=== PATIENT | female | born 1975 | race Caucasian/White ===

== ENCOUNTER → 2020-07-31 12:42 | Outpatient (BNVA) | payer OTHER, BC, SELFPAY | PROVIDERS: Family Provider Nurse Practitioner; PCP Nurse Practitioner; Visit Provider Nurse Practitioner Family | DX: Z20.828 Contact with and (suspected) exposure to other viral communicable diseases (principal) | CPT/HCPCS: 87635 ==

== ENCOUNTER 2020-08-06 12:59 | Inpatient (IN) | payer OTHER, SELFPAY ==
[2020-08-06] VITALS (11 sets, daily range): BP systolic 112–162; BP diastolic 67–104; PULSE 72–94; RESP 17–26; TEMP 36.2–37.3; O2SAT 80–95; BMI 62.1
--- NOTE | 2020-08-06 13:36 | XR_ITS ---
WS: [id number] Exam: XR chest 1V portable [id number] Date/Time of Exam: 08/06/2020 1:36 PM Reason For Exam: SOB, HYPOXIA, COVID+ There are patchy groundglass infiltrates throughout both lungs consistent with pneumonia. Normal card iomediastinal structures and regional bony elements. No pleural effusions. The lungs are fully expand ed. XR/XR chest 1V portable [id number] IMPRESSION: 1. Patchy groundglass infiltrates noted throughout both lungs consistent with p neumonia. The pattern is nonspecific but these findings can be seen with Covid 19 pneumonia.
--- NOTE | 2020-08-06 13:37 | ECG_ITS ---
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 Measurements Intervals [place] Rate: 82 P: 33 AL: 158 QRS: 7 QRSD: 98 T: 21 QT: 351 QTc: 411 Interpretive Statements SINUS RHYTHM WITH SINUS ARRHYTHMIA No previous ECG available for comparison Electronically Signed On 08-07-2020 11:07:23 SEPTIC TANK INSTALLER by Noemi Segundo M.D. [id number]
[2020-08-06 13:52] LABS: ABG PCO2 42.9 mmHg (35-45); ABG PH Result 7.42 (7.35-7.45); Arterial Blood Gas Hematocrit 37.8 % (37-47); Base Excess ABG 2.5 mmol/L (-2.0-2.0); Blood Gas Allen Test Pos; Blood Gas Operator Identificat MONRO; Blood Gas Sample Site Brachial, right; Blood Gas Sample Type Arterial; HCO3 ABG 27.5 mmol/L (22-26); Oxygen Device NC; PO2 ABG 66.2 mmHg (80.0-100.0)
[2020-08-06 13:54] LABS: Basophils % 0.2 %; Eosinophils % 0.7 %; Hematocrit 38.9 % (37.0-47.0); Hemoglobin 12.1 g/dL (11.5-15.3); Lymphocytes # 1.1 10^3/uL (0.8-4.8); Lymphocytes % 24.5 %; Mean Corpuscular HGB Conc 31.1 g/dL (30.0-36.0); Mean Corpuscular Hemoglobin 27.9 pg (28.0-34.0); Mean Corpuscular Volume 89.6 fL (81-99); Mean Platelet Volume 9.7 fL (7.4-10.4); Monocytes # 0.2 10^3/uL (0.2-0.9); Monocytes % 3.5 %; Neutrophils # 3.02 10^3/uL (1.8-7.7); Neutrophils % 70.4 %; Nucleated Red Blood Cells % 0 %; Platelet Count 156 10^3/cmm (130-400); Red Blood Count 4.34 10^6/uL (4.1-5.3); Red Cell Distribution Width 13.7 % (12.1-15.1); White Blood Count 4.3 10^3/uL (4.0-10.0)
[2020-08-06 14:08] LABS: Lactic Sepsis W/Reflex 1.4 mmol/L (0.5-2.2)
[2020-08-06 14:10] LABS: Troponin(5th) Baseline 7 ng/L (0-10)
[2020-08-06 14:17] LABS: NT Pro B Type Natriuretic Pept 53 pg/mL (0-125)
--- NOTE | 2020-08-06 14:18 | PC.PHAR ---
PT STATES SHE HAD A RX FOR INSULIN BUT IT WASNT COVERED BY HER INSURANCE-[facility] STATES THEY HAD A RX FOR LANTUS SOLOSTAR IT WASNT COVERED ON PTS INSURANCE-INSURANCE WANTS LEVAISHAIR OR KIT THEY SENT A REQUEST TO THE DR BUT HAVENT GOTTEN ANYTHING BACK
[2020-08-06 14:28] LABS: Alanine Aminotransferase 36 U/L (0-33); Albumin Level 3.8 g/dL (3.5-5.2); Alkaline Phosphatase 150 IU/L (35-105); Anion Gap 15.9 (5-19); Aspartate Amino Transferase 46 U/L (0-32); Blood Urea Nitrogen 9 mg/dL (6-20); C Reactive Protein 131.3 mg/L (0.0-4.9); Calcium 8.6 mg/dL (8.5-10.5); Carbon Dioxide 27 mmol/L (22-29); Chloride 97 mmol/L (98-107); Ferritin 297 ng/mL (15-150); Globulin 3.2 g/dL (1.3-4.6); Glomerular Filtration Rate 173.4 mL/min (90-130); Glucose 284 mg/dL (65-115); Osmolality Calculated 291 mOsm/kg (285-295); Potassium 3.9 mmol/L (3.5-5.1); Sodium 136 mmol/L (136-145); Total Bilirubin 0.8 mg/dL (0.15-1.2)
[2020-08-06] MEDS: cefTRIAXone 1,000 MG in sodium chloride 0.9% (plus) 50 ML 100 MG IV (14:57)
[2020-08-06] MEDS: dexamethasone 4 mg/mL INJ 6 MG IVP (14:57)
[2020-08-06 15:08] LABS: INR 0.93 (0.8-1.2)
[2020-08-06] MEDS: remdesivir 200 MG in sodium chloride 0.9% (100 ml) 100 ML 100 MG IV (15:12)
--- NOTE | 2020-08-06 15:37 | ECG_ITS ---
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 Measurements Intervals [place] Rate: 90 P: 24 NE: 158 QRS: 3 QRSD: 93 T: 14 QT: 348 QTc: 427 Interpretive Statements SINUS RHYTHM Compared to ECG 08/06/2020 13:31:34 Sinus arrhythmia no longer present Electronically Signed On 08-07-2020 11:29:16 PREMIUM CARD CANCELLATION CLERK by Noemi Segundo M.D. [id number]
--- NOTE | 2020-08-06 18:10 | P.HP_ITS ---
Providers/Chief Complaint Admitting Physician: Keny Crook Primary Care Provider: SANDRA SHRESTHA MD Chief Complaint: COVID +, INCREASED SOB History of Present Illness 45-year-old female with a past medical history significant for morbid obesity, diabetes mellitus, asthma and diagnosis of cellulitis of right lower extremity yesterday for which she was started on Augmentin was presented to the hospital with respiratory distress. This is associated with mild non-productive cough, subjective fever, chills and body aches. She stated this note the improve in progressively worsened in the past 2 days primarily. Upon arrival to emergency room her laboratory workup showed a WBC of 4.3, hemoglobin of 12.1, hematocrit of 38.9 and platelet count of 156. Sodium 136, potassium 3.9, chloride 97, bicarb 27, BUN 9 and creatinine of 0.4. Ferritin of 297, AST of 46, ALT of 36 an alkaline phosphatase of 150. Procalcitonin was 0.10. Rapid covered antigen was detected. Imaging studies included a chest x-ray which showed patchy ground-glass interstitial infiltrates bilaterally. Patient was noted to be hypoxic requiring up to 4 L of O2 via nasal cannula. She was started on Dec adron, Remdesivir, Ceftriaxone and admitted to the hospital. Patient was comfortable sitting up in bed during my eval. Review of Systems General: Reports: 10 or more systems reviewed and unremarkable except in HPI and below Medications/Allergies Home Medications Medication Instructions Recorded Confirmed Last Taken Type albuterol sulfate 90 mcg/actuation 2 puff INHALATION Q6H PRN 07/30/19 08/06/20 Unknown History aerosol inhaler cetirizine 10 mg capsule 10 mg PO DAILY@07/30/19 08/06/20 08/06/20 History omeprazole 20 mg capsule,delayed 20 mg PO DAILY@07/30/19 08/06/20 08/06/20 07:00 History release glipizide 10 mg tablet 10 mg PO BID@04/28/20 08/06/20 08/06/20 07:00 History Crestor 5 mg PO DAILY@08/06/20 08/06/20 08/05/20 History amoxicillin-pot clavulanate 1 tab PO Q12H 08/06/20 08/06/20 08/06/20 07:00 History ibuprofen 800 mg PO BID@07,08/06/20 08/06/20 08/06/20 07:00 History insulin glargine [Lantus Solostar See Rx Instructions .ROUTE .COMPLEX 08/06/20 08/06/20 Unknown History U-100 Insulin] lisinopril 20 mg PO DAILY@07 08/06/20 08/06/20 08/06/20 07:00 History lorazepam 0.5 - 1 mg PO BID PRN 08/06/20 08/06/20 Unknown History propranolol 80 mg PO DAILY@08/06/20 08/06/20 08/05/20 History Allergies Allergy/AdvReac Type Severity Reaction Status Date / Time No Known Allergies Allergy Verified 08/06/20 14:10 PFSH Acute PFSH: Medical History Anxiety and depression Hypertension Mixed hyperlipidemia Surgical History S/P hysterectomy S/P tubal ligation Family History Father Cancer Mother Hypertension Social History Smoking and tobacco status: never smoked Alcohol intake: never History of recent travel: No Vitals/I&O/Wt Last Vital Signs Temp 99.1 F 08/06/20 17:30 Pulse 87 08/06/20 17:30 Resp 18 08/06/20 17:30 BP 132/84 08/06/20 17:30 Pulse Ox 92 08/06/20 17:30 Weight last 48 hrs Weight 164.2 kg Physical Exam Narrative: EXAM NARRATIVE: General: alert, awake oriented x3, NAD HEENT : EOMI Grossly unremarkable Chest: Non-labored respiration CVS : NSR Extremity. Bilateral LE edema R>L - mild erythema Neuro: Grossly unremarkable Psych: Cooperative Data : 08/06/20 13:40 08/06/20 13:40 Micro: Microbiology 08/06/20 15:00 Blood Culture - Preliminary Blood SPECIMEN COLLECTED 08/06/20 14:30 Blood Culture - Preliminary Blood SPECIMEN COLLECTED A&P Assessment and plan (1) Type 2 diabetes mellitus with hyperglycemia: Status: Acute Qualifiers: Diabetes mellitus correction insulin use: without intermission coordinator use Qualified Code(s): E11.65 - Type 2 diabetes mellitus with hyperglycemia (2) Pneumonia due to COVID-19 virus: Status: Acute (3) Acute respiratory failure with hypoxia: Status: Acute 1. Acute hypoxic respiratory failure due to COVID-19 pneumonia - Remdesivir 200mg IV x 1 today, -> 100 mg IV daily x 4 days - Decadron 6 mg PO daily x 10 days - Zosyn empirically - Supplemental o2 as needed - Wean as tolerated - COVID -19 labs in am - Droplet precautions - Duoneb tx q6hr 2. Transaminitis - Trend LFT - Likley due to 3. Diabetes mellitus - Sliding scale insulin - Diabetic diet 4. RLE cellulitis - Check venous doppler - R/O DVT - Zosyn as above - Pro-ronda in am 5. GI ppx - Continue PPI 6. DVT ppx - Lovenox 40 mg Sq daily Attestations Medical Necessity Statement*: Will require over 2 midnight stay in hospital for evaluation and treatment of hypoxic respiratory failure due to COVID-19 pneumonia and cellulitis of right lower extremity Time Spent in Patient Care: (>than 50% of time spent in counselling and/or direct pt care on unit) . Coding Level of Care Code Acute Wire Coating Operator Metal for Livier Fwbryanna Diagnoses Type 2 diabetes mellitus with hyperglycemia E11.65 Diabetes mellitus correction insulin use: without correction use Pneumonia due to COVID-19 virus U07.1; J12.89 Acute respiratory failure with hypoxia J96.01
[2020-08-06] MEDS: piperacillin-tazobactam 3.375 GM in sodium chloride 0.9% (plus) 50 ML IV (19:46)
[2020-08-06] MEDS: enoxaparin 40 mg/0.4 mL Syringe SUBCUT (19:46)
[2020-08-06 21:41] LABS: Glucose Point of Care 342 mg/dL (70-110)
[2020-08-07] VITALS (16 sets, daily range): BP systolic 119–147; BP diastolic 56–82; PULSE 65–87; RESP 17–20; TEMP 36.4–36.8; O2SAT 92–96
--- NOTE | 2020-08-07 01:12 | W.ED.COVID ---
HPI - COVID General: Chief Complaint: COVID symptoms Stated Complaint: COVID +, INCREASED SOB Time Seen by Provider: 08/06/20 13:20 Source: patient Mode of arrival: EMS Limitations: no limitations Triage information: Has fever, cough or shortness of breath. Exposure to COVID + person last 14 days History of Present Illness: HPI Narrative: This is a 45 year old female who has been having respiratory symptoms and was recently diagnosed with COVID-19. She has been having increasing shortness of breath and severe weakness. Her symptoms have been worsening and so she is here to be evaluated. On arrival to the ED she was severely hypoxic with oxygen saturation at 80% on room air. She does not use oxygen at home. MD complaint: known COVID positive Prior covid testing: yes, results known COVID 19 common symptoms: positive fever(s), chills, cough, fatigue and body aches; negative dyspnea, headache(s), loss of sense of smell and/or taste, throat pain, nausea, vomiting or diarrhea COVID 19 other sytmptoms: positive requiring oxygen and lethargy; negative chest pain, pleuritic pain, cyanosis, confusion or new neurological complaints Onset (ago): day(s) (7) Severity: severe Pertinent comorbid conditions: diabetes, hypertension and obesity COVID Results: SARS-CoV-2 RNA (RT-PCR) Detected (NOT DETECTED) A 07/31/20 12:42 07/31/20 Review of Systems General: Reports: 10 or more systems reviewed and unremarkable except in HPI and below Const: Reports: fever(s), chills, body aches and fatigue Eyes: Denies: change in vision or blurry vision ENMT: Denies: throat pain Card: Denies: chest pain Resp: Denies: dyspnea GI: Denies: nausea, vomiting or diarrhea : Denies: flank pain, difficulty voiding, dysuria, urinary frequency, urinary urgency or urinary hesitancy Musc: Denies: neck pain, back pain or extremity swelling Skin/Breast: Denies: rash, pruritus or erythema Neuro: Denies: headache(s) or confusion Endo: Denies: polyuria, polydipsia or tired all the time [facility] ED PFSH: Medical History Anxiety and depression Hypertension Mixed hyperlipidemia Surgical History S/P hysterectomy S/P tubal ligation Family History Father Cancer Mother Hypertension Social History Smoking and tobacco status: never smoked Alcohol intake: never History of recent travel: No Physical Exam Const: COMMON NORMALS: no acute distress, average body habitus, patient oriented x3, no limitations, healthy appearing, alert and well nourished HENMT: COMMON NORMALS: normocephalic, atraumatic and moist oral mucous membranes HEAD & SCALP: normocephalic and atraumatic Neck/C-Spine: COMMON NORMALS: no meningeal signs and no JVD Resp: COMMON NORMALS: normal respiratory effort, No retractions, No use of accessory muscles and percussion normal AUSCULTATION: diminished lung sounds PERCUSSION: percussion normal Cardio: COMMON NORMALS: no JVD, regular rate, regular rhythm, S1 normal heart sound present, S2 normal heart sound present, No gallops present (Cardio), No clicks present (Cardio), No murmurs present (Cardio), No rub (Cardio) and Peripheral pulses 2+ throughout RATE: regular rate RHYTHM: regular rhythm HEART SOUNDS: S1 normal heart sound present and S2 normal heart sound present PERIPHERAL PULSES: Peripheral pulses 2+ throughout GI: COMMON NORMALS: Normal to inspection, nondistended, normoactive bowel sounds present, Soft to palpation, non-tender, No hepatosplenomegaly present, no masses and no bruits PALPATION: Yes Soft to palpation and Yes No hepatosplenomegaly present Extremity: COMMON NORMALS: normal to inspection, full ROM, capillary refill normal, no calf tenderness and no pedal edema Neuro: COMMON NORMALS: patient oriented x3 SENSORIUM/ORIENTATION: Yes alert MENINGEAL SIGNS: Yes no meningeal signs Skin: COMMON NORMALS: no rashes or lesions noted, no wounds, turgor normal, no jaundice, no petechiae and no mottling GENERAL SKIN EXAM: no rashes or lesions noted and turgor normal Course Reevaluation(s): Reevaluation #1: Discussed her lab and imaging findings with her and advised that she will benefit from hospital admission. She voiced understanding and is in agreement with the plan. Time: 15:30 Consultations: Consultation #1: Discussed the patient with Dr. Crook, hospitalist and he kindly accepted the patient to his service. Time: 15:24 Vital Signs: Vital signs: Vital Signs Temperature 98.4 F 08/08/20 11:41 Pulse Rate 77 08/08/20 14:00 Respiratory Rate 18 08/08/20 11:42 Blood Pressure 131/77 08/08/20 11:41 Pulse Oximetry 93 08/08/20 11:42 MDM - COVID MDM Narrative: Medical decision making narrative: This 45 year old diabetic, obese female was recently diagnosed with COVID-19 and has been having worsening SOB. She was significantly hypoxic on arrival to the ED. CXR consistent with COVID pneumonia. She is a high risk patient and is therefore admitted to the hospital for further evaluation and management. She was given a dose of dexamethasone, remdesivir, and an antibiotic in the ED. Medical Records: Attestation: I reviewed the patient's medical records. Lab Data: Attestation: I reviewed the patient's lab results. Labs: Lab Results 08/06/20 08/06/20 08/06/20 Range/Units 13:38 13:40 13:40 WBC 4.3 (4.0-10.0) 10^3/ uL RBC 4.34 (4.1-5.3) 10^6/u L Hgb 12.1 (11.5-15.3) g/dL Hct 38.9 (37.0-47.0) % MCV 89.6 (81-99) fL MCH 27.9 L (28.0-34.0) pg MCHC 31.1 (30.0-36.0) g/dL RDW 13.7 (12.1-15.1) % Plt Count 156 (130-400) 10^3/c mm MPV 9.7 (7.4-10.4) fL Neut % (Auto) 70.4 % Lymph % (Auto) 24.5 % [place] % (Auto) 3.5 % Eos % (Auto) 0.7 % Baso % (Auto) 0.2 % Neut # (Auto) 3.02 (1.8-7.7) 10^3/u L Lymph # (Auto) 1.1 (0.8-4.8) 10^3/u L [place] # (Auto) 0.2 (0.2-0.9) 10^3/u L Eos # (Auto) 0.0 (0.0-0.8) 10^3/u L Baso # (Auto) 0.0 (0.0-0.1) 10^3/u L Nucleated RBC % (a uto) 0 % Nucleated RBCs # 0.0 /100WBC PT 12.70 (12.1-14.9) SECO NDS INR 0.93 (0.8-1.2) D-Dimer 0.90 H (0-0.59) ug/mIFE U Specimen Type Arterial Sample Site Brachial, right ABG pH 7.42 (7.35-7.45) ABG pCO2 42.9 (35-45) mmHg ABG pO2 66.2 L (80.0-100.0) mmH g ABG HCO3 27.5 H (22-26) mmol/L ABG Base Excess 2.5 H (-2.0-2.0) mmol/ L Jonnathan Test Pos Hematocrit 37.8 (37-47) % O2 Delivery Device Nc O2 Liters/Min 4.0 % FiO2 36.0 % Underground Foreman ID [place] Sodium (136-145) mmol/L Potassium (3.5-5.1) mmol/L Chloride (98-107) mmol/L Carbon Dioxide (22-29) mmol/L Anion Gap (5-19) BUN (6-20) mg/dL Creatinine (0.5-0.9) mg/dL GFR Calculation (90-130) mL/min Glucose (65-115) mg/dL Calculated Osmolal ity (285-295) mOsm/k g Lactic Acid (0.5-2.2) mmol/L Calcium (8.5-10.5) mg/dL Ferritin (15-150) ng/mL Total Bilirubin (0.15-1.2) mg/dL AST (0-32) U/L ALT (0-33) U/L Alkaline Phosphata se (35-105) IU/L Troponin T Baselin e (0-10) ng/L Troponin T 120 [place] (0-10) ng/L Delta Troponin T (0-10) ABS# C-Reactive Protein (0.0-4.9) mg/L NT-Pro-B Natriuret Pep (0-125) pg/mL Total Protein (6.6-8.7) g/dL Albumin (3.5-5.2) g/dL Globulin (1.3-4.6) g/dL Procalcitonin (0-0.5) ng/mL 08/06/20 08/06/20 08/06/20 Range/Units 13:40 13:40 13:40 WBC (4.0-10.0) 10^3/ uL RBC (4.1-5.3) 10^6/u L Hgb (11.5-15.3) g/dL Hct (37.0-47.0) % MCV (81-99) fL MCH (28.0-34.0) pg MCHC (30.0-36.0) g/dL RDW (12.1-15.1) % Plt Count (130-400) 10^3/c mm MPV (7.4-10.4) fL Neut % (Auto) % Lymph % (Auto) % [place] % (Auto) % Eos % (Auto) % Baso % (Auto) % Neut # (Auto) (1.8-7.7) 10^3/u L Lymph # (Auto) (0.8-4.8) 10^3/u L [place] # (Auto) (0.2-0.9) 10^3/u L Eos # (Auto) (0.0-0.8) 10^3/u L Baso # (Auto) (0.0-0.1) 10^3/u L Nucleated RBC % (a uto) % Nucleated RBCs # /100WBC PT (12.1-14.9) SECO NDS INR (0.8-1.2) D-Dimer (0-0.59) ug/mIFE U Specimen Type Sample Site ABG pH (7.35-7.45) ABG pCO2 (35-45) mmHg ABG pO2 (80.0-100.0) mmH g ABG HCO3 (22-26) mmol/L ABG Base Excess (-2.0-2.0) mmol/ L Jonnathan Test Hematocrit (37-47) % O2 Delivery Device O2 Liters/Min % FiO2 % Underground Foreman ID Sodium 136 (136-145) mmol/L Potassium 3.9 (3.5-5.1) mmol/L Chloride 97 L (98-107) mmol/L Carbon Dioxide 27 (22-29) mmol/L Anion Gap 15.9 (5-19) BUN 9 (6-20) mg/dL Creatinine 0.4 L (0.5-0.9) mg/dL GFR Calculation 173.4 H (90-130) mL/min Glucose 284 H (65-115) mg/dL Calculated Osmolal ity 291 (285-295) mOsm/k g Lactic Acid 1.4 (0.5-2.2) mmol/L Calcium 8.6 (8.5-10.5) mg/dL Ferritin 297 H (15-150) ng/mL Total Bilirubin 0.8 (0.15-1.2) mg/dL AST 46 H (0-32) U/L ALT 36 H (0-33) U/L Alkaline Phosphata se 150 H (35-105) IU/L Troponin T Baselin e 7 (0-10) ng/L Troponin T 120 [place] (0-10) ng/L Delta Troponin T (0-10) ABS# C-Reactive Protein 131.3 H (0.0-4.9) mg/L NT-Pro-B Natriuret Pep 53 (0-125) pg/mL Total Protein 7.0 (6.6-8.7) g/dL Albumin 3.8 (3.5-5.2) g/dL Globulin 3.2 (1.3-4.6) g/dL Procalcitonin 0.10 (0-0.5) ng/mL 08/06/20 Range/Units 15:00 WBC (4.0-10.0) 10^3/ uL RBC (4.1-5.3) 10^6/u L Hgb (11.5-15.3) g/dL Hct (37.0-47.0) % MCV (81-99) fL MCH (28.0-34.0) pg MCHC (30.0-36.0) g/dL RDW (12.1-15.1) % Plt Count (130-400) 10^3/c mm MPV (7.4-10.4) fL Neut % (Auto) % Lymph % (Auto) % [place] % (Auto) % Eos % (Auto) % Baso % (Auto) % Neut # (Auto) (1.8-7.7) 10^3/u L Lymph # (Auto) (0.8-4.8) 10^3/u L [place] # (Auto) (0.2-0.9) 10^3/u L Eos # (Auto) (0.0-0.8) 10^3/u L Baso # (Auto) (0.0-0.1) 10^3/u L Nucleated RBC % (a uto) % Nucleated RBCs # /100WBC PT (12.1-14.9) SECO NDS INR (0.8-1.2) D-Dimer (0-0.59) ug/mIFE U Specimen Type Sample Site ABG pH (7.35-7.45) ABG pCO2 (35-45) mmHg ABG pO2 (80.0-100.0) mmH g ABG HCO3 (22-26) mmol/L ABG Base Excess (-2.0-2.0) mmol/ L Jonnathan Test Hematocrit (37-47) % O2 Delivery Device O2 Liters/Min % FiO2 % Underground Foreman ID Sodium (136-145) mmol/L Potassium (3.5-5.1) mmol/L Chloride (98-107) mmol/L Carbon Dioxide (22-29) mmol/L Anion Gap (5-19) BUN (6-20) mg/dL Creatinine (0.5-0.9) mg/dL GFR Calculation (90-130) mL/min Glucose (65-115) mg/dL Calculated Osmolal ity (285-295) mOsm/k g Lactic Acid (0.5-2.2) mmol/L Calcium (8.5-10.5) mg/dL Ferritin (15-150) ng/mL Total Bilirubin (0.15-1.2) mg/dL AST (0-32) U/L ALT (0-33) U/L Alkaline Phosphata se (35-105) IU/L Troponin T Baselin e (0-10) ng/L Troponin T 120 [place] 6.00 (0-10) ng/L Delta Troponin T -1.00 L (0-10) ABS# C-Reactive Protein (0.0-4.9) mg/L NT-Pro-B Natriuret Pep (0-125) pg/mL Total Protein (6.6-8.7) g/dL Albumin (3.5-5.2) g/dL Globulin (1.3-4.6) g/dL Procalcitonin (0-0.5) ng/mL Imaging Data: CXR: Attestation: I personally reviewed and interpreted this imaging study as follows: Radiologist's impression: [address] [address] XRay Report Signed Patient: Sarah Ferguson #: [id number] : 1975Acct#:[id number] Age/Sex: 45 / FADM Date: 08/06/20 Loc: ERRoom/Bed: Attending Dr: Ordering Provider/Ordering MD: Stanley Membreno MD, [facility] [place] Date of Service: 08/06/20 Procedure(s): XR chest 1V portable [id number] Accession Number(s): [id number] Report Number: [id number] WS: [id number] Exam: XR chest 1V portable [id number] Date/Time of Exam: 08/06/2020 1:36 PM Reason For Exam: SOB, HYPOXIA, COVID+ There are patchy groundglass infiltrates throughout both lungs consistent with pneumonia. Normal cardiomediastinal structures and regional bony elements. No pleural effusions. The lungs are fully expanded. XR/XR chest 1V portable [id number] IMPRESSION: 1. Patchy groundglass infiltrates noted throughout both lungs consistent with pneumonia. The pattern is nonspecific but these findings can be seen with Covid 19 pneumonia. Dictated By:Mohan Rodriguez DO Signed By:Peg Green Date/Time:08/06/20 1405 DD/ 1403 EKG Data: EKG 1: Attestation: I personally reviewed and interpreted this EKG as follows: EKG interpretation date: 08/06/20 EKG interpretation time: 13:31 Prior EKG tracings: not available for review Interpretation: sinus rhythm HR 82 bpm normal axis. No ST changes EKG 2: Attestation: I personally reviewed and interpreted this EKG as follows: EKG interpretation date: 08/06/20 EKG interpretation time: 16:43 Prior EKG tracings: available for review Interpretation: NSR HR 90 bpm normal axis No ST changes. No significant change from earlier. COVID Results: SARS-CoV-2 RNA (RT-PCR) Detected (NOT DETECTED) A 07/31/20 12:42 07/31/20 Discharge Plan Discharge Patient Disposition: Admitted As Inpatient Admit Provider: Keny Crook Clinical Impression: Acute respiratory failure with hypoxia, Type 2 diabetes mellitus with hyperglycemia, Pneumonia due to COVID-19 virus Condition: Stable Coding Level of Care Code ED Manager Respiratory Care for Livier Aguirre
[2020-08-07] MEDS: piperacillin-tazobactam 3.375 GM in sodium chloride 0.9% (plus) 50 ML IV ×3 (03:54→20:28)
[2020-08-07 06:02] LABS: Basophils % 0.2 %; Hematocrit 37.1 % (37.0-47.0); Hemoglobin 11.5 g/dL (11.5-15.3); Lymphocytes # 1.1 10^3/uL (0.8-4.8); Lymphocytes % 26.4 %; Mean Corpuscular Hemoglobin 27.8 pg (28.0-34.0); Mean Corpuscular Volume 89.6 fL (81-99); Mean Platelet Volume 10.3 fL (7.4-10.4); Monocytes # 0.2 10^3/uL (0.2-0.9); Monocytes % 3.9 %; Neutrophils # 2.83 10^3/uL (1.8-7.7); Neutrophils % 68.5 %; Nucleated Red Blood Cells % 0 %; Platelet Count 162 10^3/cmm (130-400); Red Blood Count 4.14 10^6/uL (4.1-5.3); Red Cell Distribution Width 13.6 % (12.1-15.1); White Blood Count 4.1 10^3/uL (4.0-10.0)
[2020-08-07 06:19] LABS: D Dimer 0.77 ug/mIFEU (0-0.59)
[2020-08-07] MEDS: dexamethasone 4 mg Tablet 6 MG PO (06:58)
[2020-08-07] MEDS: pantoprazole DR 40 mg Tablet PO (07:01)
[2020-08-07 07:08] LABS: Alanine Aminotransferase 30 U/L (0-33); Albumin Level 3.5 g/dL (3.5-5.2); Alkaline Phosphatase 131 IU/L (35-105); Anion Gap 19.1 (5-19); Aspartate Amino Transferase 35 U/L (0-32); Blood Urea Nitrogen 11 mg/dL (6-20); C Reactive Protein 152.5 mg/L (0.0-4.9); Calcium 8.6 mg/dL (8.5-10.5); Carbon Dioxide 23 mmol/L (22-29); Chloride 98 mmol/L (98-107); Ferritin 297 ng/mL (15-150); Globulin 3.6 g/dL (1.3-4.6); Glucose 322 mg/dL (65-115); Magnesium 1.5 mg/dL (1.7-2.3); Osmolality Calculated 294 mOsm/kg (285-295); Potassium 4.1 mmol/L (3.5-5.1); Sodium 136 mmol/L (136-145); Total Bilirubin 0.7 mg/dL (0.15-1.2); Total Protein 7.1 g/dL (6.6-8.7)
[2020-08-07 07:17] LABS: Glucose Point of Care 322 mg/dL (70-110)
[2020-08-07] MEDS: acetaminophen 325 mg Tablet 650 MG PO (08:29)
[2020-08-07] MEDS: albuterol 8 gm MDI 2 PUFF INHALATION ×4 (09:15→20:03)
[2020-08-07 11:23] LABS: Glucose Point of Care 443 mg/dL (70-110)
--- NOTE | 2020-08-07 13:33 | P.PN_ITS ---
Subjective Subjective: Interval history: Patient was stating she is feeling better however o2 requirements increased overnight. no fever or chills, no nausea or vomiting Medications: Reviewed: Yes Vitals/I&O/Wt Last Vital Signs Temp 98.0 F 08/07/20 11:59 Pulse 86 08/07/20 12:55 Resp 20 H 08/07/20 12:54 BP 135/56 08/07/20 11:59 Pulse Ox 93 08/07/20 12:54 08/06/20 08/07/20 08/07/20 22:59 06:59 14:59 Intake Total 150 / 150 530 / 680 530 / 530 Balance 150 / 150 530 / 680 530 / 530 Weight last 48 hrs Weight 164.2 kg Physical Exam Narrative: EXAM NARRATIVE: General: alert, awake oriented x3, NAD HEENT : EOMI Grossly unremarkable Chest: Non-labored respiration CVS : NSR Extremity. Bilateral LE edema R>L - mild erythema Neuro: Grossly unremarkable Psych: Cooperative Data : 08/07/20 05:25 08/07/20 05:25 Micro: Microbiology 08/06/20 15:00 Blood Culture - Preliminary Blood SPECIMEN COLLECTED 08/06/20 14:30 Blood Culture - Preliminary Blood SPECIMEN COLLECTED A&P Assessment and plan (1) Type 2 diabetes mellitus with hyperglycemia: Status: Acute Qualifiers: Diabetes mellitus assisted insulin use: without petroleum terminal plant operator use Qualified Code(s): E11.65 - Type 2 diabetes mellitus with hyperglycemia (2) Pneumonia due to COVID-19 virus: Status: Acute (3) Acute respiratory failure with hypoxia: Status: Acute 1. Acute hypoxic respiratory failure due to COVID-19 pneumonia - Remdesivir day 07/16 protocol - Decadron 6 mg PO daily x 10 days - Zosyn empirically for now - Supplemental o2 as needed - Wean as tolerated - COVID -19 labs in am - Droplet precautions - Duoneb tx q6hr - O2 requirement increased to 5L today - Continue respiratory treatments 2. Transaminitis - Trend LFT - Likely due to covid - CMP in am 3. Diabetes mellitus - Sliding scale insulin - Diabetic diet - Will add lantus 4. RLE cellulitis - Check venous doppler - pending - R/O DVT - Zosyn as above - Pro-ronda in am 5. GI ppx - Continue PPI 6. DVT ppx - Lovenox 40 mg Sq [facility] Necessity Statement*: Continue hospitalization for management of hypoxic respiratory failure due to COVID-19 pneumonia Time Spent in Patient Care: Greater than 35 minutes (>than 50% of time spent in counselling and/or direct pt care on unit) . Coding Level of Care Code Acute Screed Operator for g Fwd Diagnoses Type 2 diabetes mellitus with hyperglycemia E11.65 Diabetes mellitus petroleum terminal plant operator insulin use: without petroleum terminal plant operator use Pneumonia due to COVID-19 virus U07.1; J12.89 Acute respiratory failure with hypoxia J96.01
[2020-08-07 17:13] LABS: Glucose Point of Care 410 mg/dL (70-110)
--- NOTE | 2020-08-07 17:45 | USR_ITS ---
PROCEDURE INFORMATION: Exam: US Duplex Right Lower Extremity Veins, Limited Exam date and time: 08/07/2020 6:35 AM Age: 45 years old Clinical indication: Edema, localized; Lower extremity, right; Additional info: Edema /tenderness in setting of covid TECHNIQUE: Imaging protocol: Real-time Duplex ultrasound of the Right Lower Extremity with 2-D luong scale, color Doppler flow and spectral waveform analysis with image documentation. Limited exam was focused on the right lower extremity veins. COMPARISON: No relevant prior studies available. FINDINGS: Right deep veins: Unremarkable. The common femoral, femoral, proximal profunda femoral and popliteal veins are patent without thrombus. Normal Doppler waveforms. Normal compressibility and/or augmentation response. Right superficial veins: Unremarkable. Saphenofemoral junction is patent without thrombus. Soft tissues: Mild edema about the ankle. US/[place] [id number] IMPRESSION: No evidence of deep vein thrombosis.
[2020-08-07] MEDS: remdesivir 100 MG in sodium chloride 0.9% (100 ml) 100 ML IV (17:50)
[2020-08-07] MEDS: enoxaparin 40 mg/0.4 mL Syringe SUBCUT (20:22)
[2020-08-07 20:52] LABS: Glucose Point of Care 430 mg/dL (70-110)
[2020-08-08] VITALS (19 sets, daily range): BP systolic 110–136; BP diastolic 66–84; PULSE 63–94; RESP 18–22; TEMP 36.6–36.9; O2SAT 90–98
[2020-08-08] MEDS: albuterol 8 gm MDI 2 PUFF INHALATION ×6 (00:21→20:09)
[2020-08-08] MEDS: dexamethasone 4 mg Tablet 6 MG PO (05:04)
[2020-08-08] MEDS: piperacillin-tazobactam 3.375 GM in sodium chloride 0.9% (plus) 50 ML IV ×3 (05:06→22:15)
[2020-08-08] MEDS: pantoprazole DR 40 mg Tablet PO (06:26)
[2020-08-08 06:29] LABS: Basophils % 0.2 %; Hematocrit 37.1 % (37.0-47.0); Hemoglobin 11.6 g/dL (11.5-15.3); Lymphocytes # 1.2 10^3/uL (0.8-4.8); Lymphocytes % 24.8 %; Mean Corpuscular HGB Conc 31.3 g/dL (30.0-36.0); Mean Corpuscular Hemoglobin 28.1 pg (28.0-34.0); Mean Corpuscular Volume 89.8 fL (81-99); Monocytes # 0.3 10^3/uL (0.2-0.9); Monocytes % 5.3 %; Neutrophils # 3.27 10^3/uL (1.8-7.7); Neutrophils % 68.6 %; Nucleated Red Blood Cells % 0 %; Platelet Count 220 10^3/cmm (130-400); Red Blood Count 4.13 10^6/uL (4.1-5.3); Red Cell Distribution Width 13.6 % (12.1-15.1); White Blood Count 4.8 10^3/uL (4.0-10.0)
[2020-08-08 06:40] LABS: Glucose Point of Care 402 mg/dL (70-110)
--- NOTE | 2020-08-08 07:17 | PC.NURSE ---
patient's blood sugar is running above 400 consistently, checking with Dr Crook to see if we need to change the insulin sliding scale.
[2020-08-08 08:06] LABS: Alanine Aminotransferase 29 U/L (0-33); Albumin Level 3.7 g/dL (3.5-5.2); Alkaline Phosphatase 123 IU/L (35-105); Anion Gap 16.4 (5-19); Aspartate Amino Transferase 36 U/L (0-32); Blood Urea Nitrogen 16 mg/dL (6-20); Carbon Dioxide 28 mmol/L (22-29); Chloride 99 mmol/L (98-107); Globulin 3.8 g/dL (1.3-4.6); Glucose 335 mg/dL (65-115); Osmolality Calculated 302 mOsm/kg (285-295); Potassium 4.4 mmol/L (3.5-5.1); Sodium 139 mmol/L (136-145); Total Bilirubin 0.5 mg/dL (0.15-1.2); Total Protein 7.5 g/dL (6.6-8.7)
[2020-08-08 08:21] LABS: Slide Review Slide Review Perform
[2020-08-08] MEDS: acetaminophen 325 mg Tablet 650 MG PO (10:52)
[2020-08-08 11:07] LABS: Glucose Point of Care 457 mg/dL (70-110)
[2020-08-08] MEDS: insulin glargine 100 units/1 mL 10 UNIT SUBCUT (12:19)
--- NOTE | 2020-08-08 16:57 | P.PN_ITS ---
Subjective Subjective: Interval history: Overall unchanged No new complaints. Medications: Reviewed: Yes Vitals/I&O/Wt Last Vital Signs Temp 97.9 F 08/08/20 15:02 Pulse 65 08/08/20 15:29 Resp 18 08/08/20 15:29 BP 118/71 08/08/20 15:02 Pulse Ox 96 08/08/20 15:29 08/08/20 08/08/20 08/08/20 06:59 14:59 22:59 Intake Total 250 / 1170 320 / 320 50 / 370 Output Total 1200 / 3800 800 / 800 500 / 1300 Balance -950 / -2630 -480 / -480 -450 / -930 Physical Exam Narrative: EXAM NARRATIVE: General: alert, awake oriented x3, NAD HEENT : EOMI Grossly unremarkable Chest: Non-labored respiration CVS : NSR Extremity. Bilateral LE edema R>L - mild erythema Neuro: Grossly unremarkable Psych: Cooperative Data : 08/08/20 05:32 08/08/20 05:32 Micro: Microbiology 08/06/20 15:00 Blood Culture - Preliminary Blood NEGATIVE TO DATE 08/06/20 14:30 Blood Culture - Preliminary Blood NEGATIVE TO DATE A&P Assessment and plan (1) Type 2 diabetes mellitus with hyperglycemia: Status: Acute Qualifiers: Diabetes mellitus termite inspector insulin use: with termite inspector use Qualified Code(s): E11.65 - Type 2 diabetes mellitus with hyperglycemia; Z79.4 - half-way (current) use of insulin (2) Pneumonia due to COVID-19 virus: Status: Acute (3) Acute respiratory failure with hypoxia: Status: Acute 1. Acute hypoxic respiratory failure due to COVID-19 pneumonia - Remdesivir day 08/13 protocol - Decadron 6 mg PO daily x 10 days - Zosyn empirically for now - Supplemental o2 as needed - Wean as tolerated - COVID -19 labs in am - Droplet precautions - Duoneb tx q6hr - O2 requirement 4-5L - Continue respiratory treatments 2. Transaminitis - Trend LFT - Likely due to covid - CMP in am 3. Diabetes mellitus - Sliding scale insulin - Diabetic diet - Continue lantus 4. RLE cellulitis - Venous doppler - negative - Zosyn as above - Pro-ronda negative - Can consider deescalating abx 5. GI ppx - Continue PPI 6. DVT ppx - Lovenox 40 mg Sq daily Attestations Medical Necessity Statement*: Continue hospitalization for management of COVID-19 pneumonia Time Spent in Patient Care: Greater than 35 minutes (>than 50% of time spent in counselling and/or direct pt care on unit) . 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
[2020-08-08 16:58] LABS: Glucose Point of Care 421 mg/dL (70-110)
[2020-08-08] MEDS: remdesivir 100 MG in sodium chloride 0.9% (100 ml) 100 ML IV (17:40)
[2020-08-08] MEDS: enoxaparin 40 mg/0.4 mL Syringe SUBCUT (21:59)
[2020-08-09] VITALS (13 sets, daily range): BP systolic 123–150; BP diastolic 73–84; PULSE 56–88; RESP 16–20; TEMP 36.5–36.8; O2SAT 93–95
[2020-08-09] MEDS: albuterol 8 gm MDI 2 PUFF INHALATION ×3 (00:17→08:10)
[2020-08-09 03:55] LABS: Glucose Point of Care 402 mg/dL (70-110)
[2020-08-09] MEDS: pantoprazole DR 40 mg Tablet PO (06:27)
[2020-08-09] MEDS: dexamethasone 4 mg Tablet 6 MG PO (06:29)
[2020-08-09] MEDS: piperacillin-tazobactam 3.375 GM in sodium chloride 0.9% (plus) 50 ML IV ×3 (06:29→22:15)
[2020-08-09 06:56] LABS: Glucose Point of Care 307 mg/dL (70-110)
--- NOTE | 2020-08-09 07:00 | XR_ITS ---
WS: [id number] PORTABLE CHEST HISTORY: respiratory failure COMPARISON: 08/06/2020 Diffuse bilateral patchy opacifications have not significantly improved since the prior study. Slight ly greater opacification throughout the LEFT lung. No pleural effusion or pneumothorax. Cardiac size: Normal. Mediastinum/Aorta: Mild atherosclerosis aorta. No osseous abnormality seen. XR/XR chest 1V portable 23522 IMPRESSION: Continued unchanged mild patchy opacifications noted bilaterally, greatest on t he LEFT. Most consistent with pneumonia or pneumonitis.
[2020-08-09 08:38] LABS: D Dimer 0.61 ug/mIFEU (0-0.59)
[2020-08-09] MEDS: insulin glargine 100 units/1 mL 10 UNIT SUBCUT (09:31)
[2020-08-09 11:24] LABS: Glucose Point of Care 382 mg/dL (70-110)
[2020-08-09 12:10] LABS: Hematocrit 35.5 % (37.0-47.0); Hemoglobin 11.3 g/dL (11.5-15.3); Mean Corpuscular HGB Conc 31.8 g/dL (30.0-36.0); Mean Corpuscular Hemoglobin 28.4 pg (28.0-34.0); Mean Corpuscular Volume 89.2 fL (81-99); Mean Platelet Volume 10.1 fL (7.4-10.4); Platelet Count 234 10^3/cmm (130-400); Red Blood Count 3.98 10^6/uL (4.1-5.3); Red Cell Distribution Width 13.7 % (12.1-15.1); White Blood Count 5.1 10^3/uL (4.0-10.0)
[2020-08-09 12:27] LABS: Alanine Aminotransferase 32 U/L (0-33); Albumin Level 3.5 g/dL (3.5-5.2); Alkaline Phosphatase 123 IU/L (35-105); Anion Gap 16.4 (5-19); Aspartate Amino Transferase 49 U/L (0-32); Blood Urea Nitrogen 20 mg/dL (6-20); Calcium 8.7 mg/dL (8.5-10.5); Carbon Dioxide 27 mmol/L (22-29); Chloride 95 mmol/L (98-107); Ferritin 324 ng/mL (15-150); Globulin 2.9 g/dL (1.3-4.6); Glomerular Filtration Rate 90.9 mL/min (90-130); Glucose 392 mg/dL (65-115); Magnesium 1.7 mg/dL (1.7-2.3); Osmolality Calculated 297 mOsm/kg (285-295); Potassium 4.4 mmol/L (3.5-5.1); Sodium 134 mmol/L (136-145); Total Bilirubin 0.6 mg/dL (0.15-1.2); Total Protein 6.4 g/dL (6.6-8.7)
[2020-08-09 14:04] LABS: Slide Review Slide Review Perform
[2020-08-09 14:05] LABS: Absolute Neutrophil 3.9 10^3/cmm (1.4-6.5); Absolute Segmented Neutrophil 3.5 10/cmm (1.6-7.1); Band Neutrophils Absolute 0.4 10^3/cmm (0.0-1.2); Eosinophils 0 %; Lymphocytes 19 %; Monocytes Absolute 0.1 10^3/cmm (0.1-0.6); Platelet Estimate Normal (Normal); Segmented Neutrophils 69 %; Total Cells Counted 100 (0-100)
[2020-08-09 16:47] LABS: Glucose Point of Care 417 mg/dL (70-110)
--- NOTE | 2020-08-09 17:30 | PC.NURSE ---
doctor notified of blood sugar of 417. verbal orders for high dose sliding scale given.
[2020-08-09] MEDS: remdesivir 100 MG in sodium chloride 0.9% (100 ml) 100 ML IV (18:28)
[2020-08-09] MEDS: enoxaparin 40 mg/0.4 mL Syringe SUBCUT (20:37)
[2020-08-09 20:50] LABS: Glucose Point of Care 435 mg/dL (70-110)
--- NOTE | 2020-08-09 21:43 | P.PN_ITS ---
Subjective Subjective: Interval history: She states overall she is starting to gradually improved. She is to be needing oxygen, but says that she has been trying to take it off every once in a while and go without it. Cautioned her against doing so without supervision due to concerns of asymptomatic hypoxia and associated respiratory failure, possible other comorbid symptoms which may be dangerous. She verbalized understanding. She otherwise is doing all right. Denies chest pain or pressure. No nausea vomiting or diarrhea. Vitals/I&O/Wt Last Vital Signs Temp 97.7 F 08/09/20 20:00 Pulse 67 08/09/20 20:07 Resp 16 08/09/20 20:07 BP 150/77 08/09/20 20:00 Pulse Ox 94 08/09/20 20:07 08/09/20 08/09/20 08/09/20 06:59 14:59 22:59 Intake Total 810 / 2250 150 / 150 600 / 750 Balance 810 / -1050 150 / 150 600 / 750 Physical Exam Const: COMMON NORMALS: no acute distress, patient oriented x3 and alert GENERAL APPEARANCE: cooperative and comfortable NUTRITIONAL APPEARANCE: obese morbidly obese ORIENTATION/CONSCIOUSNESS: Yes awake OTHER: Nasal cannula in place HENMT: COMMON NORMALS: oropharynx normal Neck/C-Spine: COMMON NORMALS: no JVD Resp: COMMON NORMALS: normal respiratory effort and clear to auscultation bilaterally AUSCULTATION: clear to auscultation bilaterally Cardio: COMMON NORMALS: no JVD, regular rhythm, S1 normal heart sound present, S2 normal heart sound present and No murmurs present (Cardio) RHYTHM: regular rhythm HEART SOUNDS: S1 normal heart sound present and S2 normal heart sound present GI: COMMON NORMALS: Normal to inspection, nondistended, normoactive bowel sounds present, Soft to palpation and non-tender PALPATION: Yes Soft to palpation Extremity: COMMON NORMALS: no joint enlargement and no pedal edema Neuro: COMMON NORMALS: patient oriented x3 and moves all extremities SENSORIUM/ORIENTATION: Yes alert Data : 08/09/20 11:30 08/09/20 11:30 A&P Assessment and plan (1) Type 2 diabetes mellitus with hyperglycemia: Status: Acute Qualifiers: Diabetes mellitus exterminator helper insulin use: with senior living use Qualified Code(s): E11.65 - Type 2 diabetes mellitus with hyperglycemia; Z79.4 - nursing home (current) use of insulin (2) Pneumonia due to COVID-19 virus: Status: Acute (3) Acute respiratory failure with hypoxia: Status: Acute 1. Acute hypoxic respiratory failure due to COVID-19 pneumonia: Still requiring supplemental oxygen. Not normally supplemental O2. Continue remdesivir, Decadron. Empirically on antibiotic. We will continue for now. Continue prophylactic Lovenox. Recheck D-dimer, CRP. 2. Transaminitis: Monitor CMP - Likely due to covid 3. Diabetes mellitus: Difficult to control hyperglycemia, With blood glucose persistently rising above 400. Escalated to aggressive sliding scale. Will increase Lantus to 15 units. - Sliding scale insulin - Diabetic diet 4. RLE cellulitis: Improving - Venous doppler - negative -Continues empirically on Zosyn. Reassess. 5. GI ppx - Continue PPI 6. DVT ppx - Lovenox 40 mg Sq daily Attestations Medical Necessity Statement*: Continue admission for cyst management of severe COVID-19 pneumonia, hypoxic respiratory failure. 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
[2020-08-10] VITALS (11 sets, daily range): BP systolic 121–145; BP diastolic 68–84; PULSE 55–69; RESP 18–19; TEMP 36.7–37.2; O2SAT 92–98
[2020-08-10 06:36] LABS: Glucose Point of Care 251 mg/dL (70-110)
[2020-08-10] MEDS: dexamethasone 4 mg Tablet 6 MG PO (06:43)
[2020-08-10] MEDS: pantoprazole DR 40 mg Tablet PO (06:44)
[2020-08-10] MEDS: piperacillin-tazobactam 3.375 GM in sodium chloride 0.9% (plus) 50 ML IV ×3 (06:44→21:14)
[2020-08-10 07:39] LABS: Basophils % 0.3 %; Eosinophils % 0.2 %; Hematocrit 38.1 % (37.0-47.0); Lymphocytes # 2.1 10^3/uL (0.8-4.8); Lymphocytes % 36.7 %; Mean Corpuscular HGB Conc 31.5 g/dL (30.0-36.0); Mean Corpuscular Hemoglobin 28.2 pg (28.0-34.0); Mean Corpuscular Volume 89.4 fL (81-99); Mean Platelet Volume 9.9 fL (7.4-10.4); Monocytes # 0.4 10^3/uL (0.2-0.9); Monocytes % 6.1 %; Neutrophils # 3.07 10^3/uL (1.8-7.7); Neutrophils % 53.2 %; Nucleated Red Blood Cells % 0 %; Platelet Count 275 10^3/cmm (130-400); Red Blood Count 4.26 10^6/uL (4.1-5.3); Red Cell Distribution Width 13.3 % (12.1-15.1); White Blood Count 5.8 10^3/uL (4.0-10.0)
[2020-08-10 08:01] LABS: D Dimer 0.86 ug/mIFEU (0-0.59)
[2020-08-10 08:04] LABS: Alanine Aminotransferase 39 U/L (0-33); Albumin Level 3.7 g/dL (3.5-5.2); Alkaline Phosphatase 140 IU/L (35-105); Anion Gap 14.4 (5-19); Aspartate Amino Transferase 43 U/L (0-32); Blood Urea Nitrogen 20 mg/dL (6-20); Calcium 8.8 mg/dL (8.5-10.5); Carbon Dioxide 30 mmol/L (22-29); Chloride 96 mmol/L (98-107); Creatine Phosphokinase 34 U/L (26-192); Glomerular Filtration Rate 108.6 mL/min (90-130); Glucose 237 mg/dL (65-115); Osmolality Calculated 294 mOsm/kg (285-295); Potassium 3.4 mmol/L (3.5-5.1); Sodium 137 mmol/L (136-145); Total Bilirubin 0.6 mg/dL (0.15-1.2); Total Protein 7.7 g/dL (6.6-8.7)
[2020-08-10 08:05] LABS: Slide Review Slide Review Perform
[2020-08-10] MEDS: insulin glargine 100 units/1 mL 15 UNIT SUBCUT (08:17)
[2020-08-10 10:44] LABS: Glucose Point of Care 352 mg/dL (70-110)
[2020-08-10 16:49] LABS: Glucose Point of Care 461 mg/dL (70-110)
--- NOTE | 2020-08-10 17:12 | PC.NURSE ---
Notified Dr Rivera that patient's blood sugar is 461.
[2020-08-10] MEDS: remdesivir 100 MG in sodium chloride 0.9% (100 ml) 100 ML IV (19:55)
[2020-08-10 20:07] LABS: Glucose Point of Care 373 mg/dL (70-110)
--- NOTE | 2020-08-10 20:56 | P.PN_ITS ---
Subjective Subjective: Interval history: She feels she is gradually continue to be doing little bit better. Cough is improving. Denies chest pain. No nausea vomiting or diarrhea. She is trying to get up and get around little bit more in her room. Vitals/I&O/Wt Last Vital Signs Temp 98.8 F 08/10/20 20:00 Pulse 67 08/10/20 20:45 Resp 18 08/10/20 20:45 BP 144/84 08/10/20 20:00 Pulse Ox 92 08/10/20 20:45 08/10/20 08/10/20 08/10/20 06:59 14:59 22:59 Intake Total 50 / 800 590 / 590 350 / 940 Output Total 300 / 2100 Balance -250 / -1300 590 / 590 350 / 940 Physical Exam Const: COMMON NORMALS: no acute distress, patient oriented x3 and alert GENERAL APPEARANCE: cooperative and comfortable NUTRITIONAL APPEARANCE: obese morbidly obese ORIENTATION/CONSCIOUSNESS: Yes awake OTHER: Nasal cannula in place HENMT: COMMON NORMALS: oropharynx normal Neck/C-Spine: COMMON NORMALS: no JVD Resp: COMMON NORMALS: normal respiratory effort and clear to auscultation bilaterally AUSCULTATION: clear to auscultation bilaterally Cardio: COMMON NORMALS: no JVD, regular rhythm, S1 normal heart sound present, S2 normal heart sound present and No murmurs present (Cardio) RHYTHM: regular rhythm HEART SOUNDS: S1 normal heart sound present and S2 normal heart sound present GI: COMMON NORMALS: Normal to inspection, nondistended, normoactive bowel so unds present, Soft to palpation and non-tender PALPATION: Yes Soft to palpation Extremity: COMMON NORMALS: no joint enlargement and no pedal edema Neuro: COMMON NORMALS: patient oriented x3 and moves all extremities SENSORIUM/ORIENTATION: Yes alert Data : 08/10/20 07:30 08/10/20 07:30 A&P Assessment and plan (1) Type 2 diabetes mellitus with hyperglycemia: Status: Acute Qualifiers: Diabetes mellitus resin painter insulin use: with residential use Qualified Code(s): E11.65 - Type 2 diabetes mellitus with hyperglycemia; Z79.4 - central station operator (current) use of insulin (2) Pneumonia due to COVID-19 virus: Status: Acute (3) Acute respiratory failure with hypoxia: Status: Acute 1. Acute hypoxic respiratory failure due to COVID-19 pneumonia: Continues to require supplemental oxygen, but requirement appears to be gradually decreasing. She is starting to get little bit more active. Completing remdesivir this evening. Continue Decadron for now, but will decrease dose. Will reassess tomorrow, if continue to improve, oxygenation improving, she is interested in potential cautious discharge home. Continue prophylactic Lovenox. Recheck D-dimer, CRP. 2. Transaminitis: Monitor CMP - Likely due to covid 3. Diabetes mellitus: Again hyperglycemic today. Will decrease Decadron dose now that she is consistently improving. Increase Lantus dose to 18 units. Continue aggressive sliding scale. - Diabetic diet 4. RLE cellulitis: Improving - Venous doppler - negative -Continues empirically on Zosyn. Reassess. 5. GI ppx - Continue PPI 6. DVT ppx - Lovenox 40 mg Sq daily Attestations Medical Necessity Statement*: Continue admission for assessment management of severe COVID-19 pneumonia, improving hypoxic respiratory failure. 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
[2020-08-10] MEDS: enoxaparin 40 mg/0.4 mL Syringe SUBCUT (21:00)
[2020-08-11] VITALS (10 sets, daily range): BP systolic 121–152; BP diastolic 74–82; PULSE 50–75; RESP 18; TEMP 36.6–37.2; O2SAT 86–97
[2020-08-11 05:51] LABS: Basophils % 0.2 %; Eosinophils % 0.3 %; Hematocrit 36.9 % (37.0-47.0); Hemoglobin 11.6 g/dL (11.5-15.3); Lymphocytes # 2.2 10^3/uL (0.8-4.8); Lymphocytes % 36.1 %; Mean Corpuscular HGB Conc 31.4 g/dL (30.0-36.0); Mean Corpuscular Volume 89.1 fL (81-99); Mean Platelet Volume 10.1 fL (7.4-10.4); Monocytes # 0.3 10^3/uL (0.2-0.9); Monocytes % 5.6 %; Neutrophils # 3.27 10^3/uL (1.8-7.7); Nucleated Red Blood Cells % 0.5 %; Platelet Count 277 10^3/cmm (130-400); Red Blood Count 4.14 10^6/uL (4.1-5.3); Red Cell Distribution Width 13.2 % (12.1-15.1); White Blood Count 6.1 10^3/uL (4.0-10.0)
[2020-08-11 06:15] LABS: Alanine Aminotransferase 42 U/L (0-33); Albumin Level 3.6 g/dL (3.5-5.2); Alkaline Phosphatase 126 IU/L (35-105); Anion Gap 12.6 (5-19); Aspartate Amino Transferase 45 U/L (0-32); Blood Urea Nitrogen 20 mg/dL (6-20); Calcium 8.8 mg/dL (8.5-10.5); Carbon Dioxide 31 mmol/L (22-29); Chloride 99 mmol/L (98-107); Globulin 3.3 g/dL (1.3-4.6); Glomerular Filtration Rate 108.6 mL/min (90-130); Glucose 233 mg/dL (65-115); Osmolality Calculated 298 mOsm/kg (285-295); Potassium 3.6 mmol/L (3.5-5.1); Sodium 139 mmol/L (136-145); Total Bilirubin 0.6 mg/dL (0.15-1.2); Total Protein 6.9 g/dL (6.6-8.7)
[2020-08-11] MEDS: pantoprazole DR 40 mg Tablet PO (06:28)
[2020-08-11] MEDS: piperacillin-tazobactam 3.375 GM in sodium chloride 0.9% (plus) 50 ML IV (06:29)
[2020-08-11 06:37] LABS: Glucose Point of Care 279 mg/dL (70-110)
[2020-08-11 07:08] LABS: Slide Review Slide Review Perform
[2020-08-11 08:45] LABS: C Reactive Protein 12.9 mg/L (0.0-4.9)
[2020-08-11 08:49] LABS: D Dimer 0.85 ug/mIFEU (0-0.59)
[2020-08-11] MEDS: insulin glargine 100 units/1 mL 18 UNIT SUBCUT (09:04)
[2020-08-11 10:41] LABS: Glucose Point of Care 436 mg/dL (70-110)
--- NOTE | 2020-08-11 14:22 | PC.NURSE ---
Patient states her IV was leaking this morning and eventually fell out this afternoon. She was due to have Zosyn and is a hard stick. Dr Rievra said he is discharging this patient and to discontinue the Zosyn.
--- NOTE | 2020-08-11 14:55 | PM.DCS ---
Discharge Providers Date of Admission: 08/06/20 15:27 Date of Discharge: August 11, 2020 Attending Provider at Admission: Keny Crook Attending Provider at Discharge: Jeanmarie Rivera Primary Care Provider: SANDRA SHRESTHA MD Diagnoses at Discharge Discharge Diagnosis (1) Type 2 diabetes mellitus with hyperglycemia: Status: Acute Qualifiers: Diabetes mellitus etymology professor insulin use: with skilled nursing use Qualified Code(s): E11.65 - Type 2 diabetes mellitus with hyperglycemia; Z79.4 - detention (current) use of insulin (2) Pneumonia due to COVID-19 virus: Status: Acute (3) Acute respiratory failure with hypoxia: Status: Acute Reason for Visit Reason for Visit: COVID +, INCREASED SOB Hospital Course Hospital Course Pleasant 45-year-old lady with history of DM2, recently planning to start insulin with her primary care provider, HTN, morbid obesity, asthma started on Augmentin day prior to admission for cellulitis of right lower extremity, was admitted after presenting with respiratory distress, found to be hypoxic, requiring 4 L oxygen by nasal cannula, previously not on supplemental oxygen, with acute hypoxic respiratory failure secondary to severe COVID-19 pneumonia, underwent treatment with a course of remdesivir, Decadron, empirically treated also with Zosyn for both cellulitis and possibility of superimposed bacterial pneumonia. Mild transaminitis noted in the hospital. Noted to be hyperglycemic, requiring escalation of insulin therapy while in the hospital. Long-acting insulin dose as high as 18 units. On discharge since steroids are being tapered down for now decreased to 12 units, and will adjust depending on glucose at home. At this time also prescribe sliding scale insulin with meals. And is agreeable for follow-up with endocrinology in office. We discussed additional adjustments to insulin therapy, with precautions against hypoglycemia. Overall she is progressively continue to improve. Oxygen requirement continues to decrease. She has been becoming more mobile, ambulating in her room. She is feeling much better subjectively, and is requesting to return home. On discharge she does qualify for 2 L oxygen by nasal cannula which is requested. She will complete a short Decadron taper, complete 2 more days of antibiotic therapy with doxycycline. Please follow-up on continued improvement in respiratory failure symptoms, follow-up on resolution of cellulitis. Lower extremity duplex was assessed during hospitalization without finding of VTE. Due to elevation D-dimer, risk factors for VTE in the setting of COVID-19 infection we discussed additional 2 weeks of anticoagulation prophylaxis for VTE. She is agreeable to proceed after additional discussion regarding additional risks of bleeding. Physical Exam Const: COMMON NORMALS: no acute distress, patient oriented x3 and alert GENERAL APPEARANCE: cooperative and comfortable NUTRITIONAL APPEARANCE: obese morbidly obese ORIENTATION/CONSCIOUSNESS: Yes awake OTHER: Nasal cannula in place HENMT: COMMON NORMALS: oropharynx normal Neck/C-Spine: COMMON NORMALS: no JVD Resp: COMMON NORMALS: normal respiratory effort and clear to auscultation bilaterally AUSCULTATION: clear to auscultation bilaterally Cardio: COMMON NORMALS: no JVD, regular rhythm, S1 normal heart sound present, S2 normal heart sound present and No murmurs present (Cardio) RHYTHM: regular rhythm HEART SOUNDS: S1 normal heart sound present and S2 normal heart sound present GI: COMMON NORMALS: Normal to inspection, nondistended, normoactive bowel sounds present, Soft to palpation and non-tender PALPATION: Yes Soft to palpation Extremity: COMMON NORMALS: no joint enlargement and no pedal edema Neuro: COMMON NORMALS: patient oriented x3 and moves all extremities SENSORIUM/ORIENTATION: Yes alert Skin: NARRATIVE SKIN EXAM: Nearly resolving cellulitis with minimal erythema noted on anterolateral right lower extremity. Discharge Data Data Completed and Pending: Completed Studies During Hospitalization Category Date Time Status XR chest 1V toya ble 94770 Routine Exams 08/09/20 07:00 Completed XR chest 1V toya ble [id number] Stat Exams 08/06/20 13:36 [place] [id number] Routin e Ultrasound 08/07/20 17:45 Completed Pending at discharge Category Date Time Status Blood Culture Sta t Lab 08/06/20 14:30 Results Complete Blood Co unt w/Auto AM LABS Lab 08/12/20 04:00 Ordered Comprehensive Met abolic Panel AM LA BS Lab 08/12/20 04:00 Ordered Labs from last 24 hours 08/11/20 08/11/20 08/11/20 10:33 06:27 04:58 WBC RBC Hgb Hct MCV MCH MCHC RDW Plt Count MPV Neut % (Auto) Lymph % (Auto) [place] % (Auto) Eos % (Auto) Baso % (Auto) Neut # (Auto) Lymph # (Auto) [place] # (Auto) Eos # (Auto) Baso # (Auto) Nucleated RBC % (a uto) Nucleated RBCs # D-Dimer Sodium Potassium Chloride Carbon Dioxide Anion Gap BUN Creatinine GFR Calculation Glucose POC Glucose 436 H 279 H Calculated Osmolal ity Calcium Total Bilirubin AST ALT Alkaline Phosphata se C-Reactive Protein 12.9 H Total Protein Albumin Globulin 08/11/20 08/11/20 08/11/20 04:58 04:58 04:58 WBC 6.1 RBC 4.14 Hgb 11.6 Hct 36.9 L MCV 89.1 MCH 28.0 MCHC 31.4 RDW 13.2 Plt Count 277 MPV 10.1 Neut % (Auto) 54.0 Lymph % (Auto) 36.1 [place] % (Auto) 5.6 Eos % (Auto) 0.3 Baso % (Auto) 0.2 Neut # (Auto) 3.27 Lymph # (Auto) 2.2 [place] # (Auto) 0.3 Eos # (Auto) 0.0 Baso # (Auto) 0.0 Nucleated RBC % (a uto) 0.5 Nucleated RBCs # 0.0 D-Dimer 0.85 H Sodium 139 Potassium 3.6 Chloride 99 Carbon Dioxide 31 H Anion Gap 12.6 BUN 20 Creatinine 0.6 GFR Calculation 108.6 Glucose 233 H POC Glucose Calculated Osmolal ity 298 H Calcium 8.8 Total Bilirubin 0.6 AST 45 H ALT 42 H Alkaline Phosphata se 126 H C-Reactive Protein Total Protein 6.9 Albumin 3.6 Globulin 3.3 08/10/20 08/10/20 19:52 16:45 WBC RBC Hgb Hct MCV MCH MCHC RDW Plt Count MPV Neut % (Auto) Lymph % (Auto) [place] % (Auto) Eos % (Auto) Baso % (Auto) Neut # (Auto) Lymph # (Auto) [place] # (Auto) Eos # (Auto) Baso # (Auto) Nucleated RBC % (a uto) Nucleated RBCs # D-Dimer Sodium Potassium Chloride Carbon Dioxide Anion Gap BUN Creatinine GFR Calculation Glucose POC Glucose 373 H 461 H Calculated Osmolal ity Calcium Total Bilirubin AST ALT Alkaline Phosphata se C-Reactive Protein Total Protein Albumin Globulin Vitals: Last Vital Signs Temp 98.1 F 08/11/20 11:29 Pulse 66 08/11/20 11:29 Resp 18 08/11/20 11:29 BP 129/77 08/11/20 11:29 Pulse Ox 97 03/03/21 11:29 Discharge Plan Discharge Patient Disposition: Home Condition: Stable Prescriptions: New Basaglar KwikPen U-100 Insulin 100 unit/mL (3 mL) insulin pen 12 unit SUBCUT QAM Qty: 15 RF: 0 Eliquis 2.5 mg tablet 2.5 mg PO BID 15 Days Qty: 30 RF: 0 dexamethasone 1.5 mg tablet 1.5 mg PO DAILY Qty: 7 RF: 0 insulin lispro 100 unit/mL solution See Rx Instructions .ROUTE .COMPLEX Qty: 10 RF: 0 doxycycline hyclate 100 mg capsule 100 mg PO BID 2 Days Qty: 4 RF: 0 Continued albuterol sulfate [ProAir HFA] 90 mcg/actuation HFA aerosol inhaler 2 puff INHALATION Q6H PRN (Reason: Shortness Of Breath) RF: 0 cetirizine 10 mg capsule 10 mg PO DAILY@07 RF: 0 omeprazole 20 mg capsule,delayed release(DR/EC) 20 mg PO DAILY@07 RF: 0 lorazepam 1 mg tablet 0.5 - 1 mg PO BID PRN (Reason: Anxiety) RF: 0 lisinopril 20 mg tablet 20 mg PO DAILY@07 RF: 0 propranolol 80 mg capsule,extended release 24 hr 80 mg PO DAILY@21 RF: 0 Crestor 5 mg tablet 5 mg PO DAILY@21 RF: 0 Lantus Solostar U-100 Insulin 100 unit/mL (3 mL) Insulin Pen See Rx Instructions .ROUTE .COMPLEX RF: 0 Discontinued glipizide 10 mg tablet 10 mg PO BID@ RF: 0 amoxicillin-pot clavulanate 875-125 mg tablet 1 tab PO Q12H RF: 0 ibuprofen 800 mg tablet 800 mg PO BID@ RF: 0 Discharge Orders: Discharge Order (Routine); Ordered 08/11/20 Ordered By: Jeanmarie Rivera Other Ambulatory Orders: DME: Oxygen (Order) Location: None Selected Ordered By: Jeanmarie Rivera Referrals: SANDRA SHRESTHA MD [Primary Care Provider] - 08/18/20 3:00 pm James Le MD [Physician] - 2 weeks Discharge Diet: Diabetic Discharge Activity: Increase activity as tolerated, Oxygen as instructed and Return to work/school after cleared by PCP/Specialist Patient Instructions: Type 2 Diabetes, Diabetes and Diet, Doxycycline (By mouth), Dexamethasone (By mouth), Apixaban (By mouth), Diabetes Mellitus Type 2 in Children (GEN), Pneumonia Stoplight, Pneumonia - Viral Activity Restrictions/Additional Instructions: Continue oxygen at home, target allergen saturation 92%. If your oxygen persistently remains below 90% even despite increasing oxygen flow rate, please seek medical attention. Seek medical attention also if you experience any severely worsening shortness of breath, severe fatigue, chest pain, fainting, or any other concerning symptoms. Continue to monitor your blood glucose at least 3 times daily, ideally 4 times daily before meals and at night. Continue isolation for additional week, 21 days total after onset of symptoms, and if remaining afebrile for at least 24 hours, and with resolution of symptoms and improving cough for at least 24 hours, isolation may be discontinued. At that point if you are continuing to do well, oxygenation remained stable, you may cautiously return to work. Continue long-acting insulin daily at 12 units. If you note that your glucose is at any point below 80, decrease long-acting insulin by half, skip the next dose of short acting insulin. If your glucose persistently remains high, above 150-200, increase long-acting insulin by no more than 2-3 units in a day. Take sliding scale insulin before meals depending on premeal glucose level. Please be aware that as you are decreasing the dose of this Steroid at home, your glucose level slightly start decreasing further. Avoid hypoglycemia, if glucose is less than 60, take sugary snacks, recheck glucose level in 15-20 minutes, skip next dose insulin, if low glucose persist, seek medical attention. 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
== END 2020-08-11 16:57 | disposition home or self-care (01) | DRG 177 ==
LOC: ER 13:25 → MEDSURG 17:09
PROVIDERS: Admitting Provider Hospitalist; Emergency Provider Family Medicine; PCP Emergency Medicine; Visit Provider Internal Medicine
DX: U07.1 COVID-19 (principal); J12.82 Pneumonia due to coronavirus disease 2019; J96.01 Acute respiratory failure with hypoxia; J15.9 Unspecified bacterial pneumonia; Z68.44 Body mass index [BMI] 60.0-69.9, adult; L03.115 Cellulitis of right lower limb; E66.01 Morbid (severe) obesity due to excess calories; E11.65 Type 2 diabetes mellitus with hyperglycemia; J45.909 Unspecified asthma, uncomplicated; F41.8 Other specified anxiety disorders; I10 Essential (primary) hypertension; E78.2 Mixed hyperlipidemia; Z79.51 Long term (current) use of inhaled steroids; Z79.4 Long term (current) use of insulin
CPT/HCPCS: 36415; 36416; 36600; 71045; 80053; 82550; 82728; 82803; 82962; 83605; 83735; 83880; 84145; 84484; 85007; 85025; 85378; 85610; 86140; 87040; 93005; 93971; 94640; 96365; 96367; 96372; 96375; 99285; J0696; J1100; J1650; J1815 ×2; J2543; J3535; J8540

== ENCOUNTER → 2020-09-02 07:59 | Outpatient (BNVA) | payer BC, SELFPAY | PROVIDERS: PCP Emergency Medicine; Visit Provider Internal Medicine | DX: E11.65 Type 2 diabetes mellitus with hyperglycemia (principal); Z79.4 Long term (current) use of insulin; E78.2 Mixed hyperlipidemia | CPT/HCPCS: 99204 ==

== ENCOUNTER → 2021-12-26 15:31 | Outpatient (BNVA) | payer BC, SELFPAY | PROVIDERS: PCP Emergency Medicine; Visit Provider Internal Medicine | DX: E78.2 Mixed hyperlipidemia (principal); E11.65 Type 2 diabetes mellitus with hyperglycemia | CPT/HCPCS: 36415; 80053; 80061; 82044; 83036 ==

== ENCOUNTER → 2022-03-29 09:30 | Outpatient (BNVA) | payer BC, SELFPAY | PROVIDERS: PCP Emergency Medicine; Visit Provider Internal Medicine | DX: E11.65 Type 2 diabetes mellitus with hyperglycemia (principal); E78.2 Mixed hyperlipidemia; Z79.4 Long term (current) use of insulin | CPT/HCPCS: 80053; 80061; 83036 ==

== ENCOUNTER 2022-06-23 11:06 | Outpatient (CLI) | payer BC, SELFPAY ==
[2022-06-23 12:05] LABS: Estmated Average Glucose 186; Hemoglobin A1C 8.1 % (4.0-6.0)
[2022-06-23 12:37] LABS: Alanine Aminotransferase 17 U/L (0-33); Alkaline Phosphatase 83 U/L (35-105); Anion Gap 12.3 (5-19); Aspartate Amino Transferase 19 U/L (0-32); Blood Urea Nitrogen 15 mg/dL (6-20); Calcium 9.9 mg/dL (8.5-10.5); Carbon Dioxide 28 mmol/L (22-29); Chloride 100 mmol/L (98-107); Cholesterol 151 mg/dL (0-200); Globulin 3.4 g/dL (1.3-4.6); Glomerular Filtration Rate 107.6 mL/min (90-130); Glucose 147 mg/dL (65-115); HDL Cholesterol 42 mg/dL (60-100); LDL Cholesterol Calculated 84 mg/dL (50-129); Osmolality Calculated 286 mOsm/kg (285-295); Potassium 4.3 mmol/L (3.5-5.1); Sodium 136 mmol/L (136-145); Total Protein 7.4 g/dL (6.6-8.7); Triglycerides 123 mg/dL (0-150)
== END 2022-06-23 11:07 | disposition home or self-care (01) ==
PROVIDERS: PCP Emergency Medicine; Visit Provider Internal Medicine
DX: E11.65 Type 2 diabetes mellitus with hyperglycemia (principal); E78.2 Mixed hyperlipidemia
CPT/HCPCS: 36415; 80053; 80061; 83036

== ENCOUNTER → 2024-07-11 12:51 | Outpatient (BNVA) | payer BC, SELFPAY | PROVIDERS: PCP Emergency Medicine | DX: J02.9 Acute pharyngitis, unspecified (principal) | CPT/HCPCS: 87880 ==